=== PATIENT | male | born 1970 | race Caucasian/White ===

== ENCOUNTER 2023-02-13 10:24 | Emergency (ER) | payer OTHER, SELFPAY ==
[2023-02-13 10:33] VITALS: BP 144/83; PULSE 75; RESP 18; TEMP 36.7; O2SAT 99; BMI 28.1
--- NOTE | 2023-02-13 12:34 | PC.NURSE ---
lower right jaw swelling
--- NOTE | 2023-02-13 12:47 | ED.DENTAL1 ---
HPI - Dental/Oral General Chief complaint: Dental/Oral Stated complaint: DENTAL PAIN Time Seen by Provider: 02/13/23 12:43 Source: patient Mode of arrival: walk-in Limitations: no limitations History of Present Illness HPI Narrative: 52-year-old male presents here w chief complaint of right lower gum and dental pain. Facial swelling noted. Pain states has been using ibuprofen throughout the week and woke this morning with more swelling. No known injury or trauma. Patient is afebrile. Teeth map: 1. lower dental pain with swelling, no acute abscess Related Data Previous Rx's Medication Instructions Recorded clindamycin HCl 300 mg capsule 300 mg PO BID 7 days #14 caps 02/13/23 Allergies Allergy/AdvReac Type Severity Reaction Status Date / Time No Known Drug Allergies Allergy Verified 02/13/23 10:35 Review of Systems ROS Narrative All Systems are negative except as noted/marked.All systems reviewed and otherwise negative PFSH PFSH Social History Smoking status: Never smoker Exam Narrative Exam Narrative: Metastasis to nurses notes reviewed and patient is noted to be non-hypoxic. General: The patient is comfortable, alert and oriented x3, well appearing, non toxic in no apparent distress. Head: Atraumatic and normocephalic. Eyes: Normal conjunctiva, no exudates. ENT: The oropharynx is normal. No pharyngeal erythema, uvular edema, tonsillar exudates, asymmetry or trismus. Uvula is midline. Mouth is normal to inspection With the exception of a pain on percussion of the tooth #27 and 28 and evidence of dental caries. There is evidence of facial asymmetry but no abscess formation. Floor of the mouth is soft. No tenderness in the submental or submandibular space. No tongue elevation or deviation. The patient has no evidence of periapical abscess, gingivitis, ANUG or other acute pathology. Airway is patent. Neck: The neck demonstrates normal range of motion. No meningeals signs are present. No stridor. No masses or lymphandenopathy noted. Respiratory: No acute distress, lungs are clear to auscultation, no wheezing, rhonchi, or rales noted. No stridor or retractions are noted. Cardiovascular: Regular rate and rhythm Skin: The skin exam shows no evidence of rashes Neuro: Alert and oriented x4, normal speech Lymphatic: No cervical lymphadenopathy Constitutional Vital Signs, click to edit/add: Last Vital Signs Temp 98.0 F 02/13/23 10:33 Pulse 75 02/13/23 10:33 Resp 18 02/13/23 10:33 BP 144/83 H 02/13/23 10:33 Pulse Ox 99 02/13/23 10:33 O2 Del Method Room Air 02/13/23 12:34 Course Vital Signs Vital signs: Vital Signs Temperature 98.0 F 02/13/23 10:33 Pulse Rate 75 02/13/23 10:33 Respiratory Rate 18 02/13/23 10:33 Blood Pressure 144/83 H 02/13/23 10:33 Pulse Oximetry 99 02/13/23 10:33 Oxygen Delivery Method Room Air 02/13/23 10:33 Temperature 98.0 F 02/13/23 10:33 Pulse Rate 75 02/13/23 10:33 Respiratory Rate 18 02/13/23 10:33 Blood Pressure 144/83 H 02/13/23 10:33 Pulse Oximetry 99 02/13/23 10:33 Oxygen Delivery Method Room Air 02/13/23 12:34 MDM - Dental/Oral MDM Narrative Medical decision making narrative: Healthy male presents with right lower dental pain and facial swelling. States he's had pain for the last several days and woke this morning with facial swelling. No acute abscess to be drained at this time. Patient told to use warm heat compress and will be placed on clindamycin. Follow-up with his dentist. Patient verbalizes understanding agrees with plan of care. Dental dental anesthesia sent home from the emergency room I, Dr Diaz, have reviewed the above progress note and course of action in the ER; agree with the above. I have gone over history and physical, and discussed disposition and treatment plan with the patient. Differential Diagnosis Differential diagnosis: Likely gingival abscess, dental caries, toothache and dental abscess Discharge Plan Discharge Chief Complaint: Dental/Oral Clinical Impression: Gingival abscess, Toothache Patient Disposition: Home, Self-Care Time of Disposition Decision: 12:43 Condition: Good Mode of Transportation: Private Vehicle Prescriptions / Home Meds: New clindamycin HCl 300 mg capsule 300 mg PO BID 7 Days Qty: 14 0RF Instructions: Toothache (ED) Additional Instructions: Follow up with your dentist this week Stand Alone Forms: Portal Instructions Referrals: Physician,Non-Staff, MD [Primary Care Provider] - 1 week Discharge Date/Time: 02/13/23 13:08
[2023-02-13] MEDS: BENZOCAINE 30 ML, lidocaine HCL 15 ML MM (13:05)
== END 2023-02-13 13:08 | disposition home or self-care (01) ==
PROVIDERS: Emergency Provider Emergency Medicine
DX: K05.20 Aggressive periodontitis, unspecified (principal); K08.89 Other specified disorders of teeth and supporting structures
CPT/HCPCS: 99283